=== PATIENT | female | born 1995 | race Caucasian/White ===

== ENCOUNTER 2018-12-21 12:54 | Day surgery (SDC) | payer OTHER ==
[2018-12-21] MEDS ORDERED: LACTATED RINGER'S 1,000 ML IV (14:30)
[2018-12-21] MEDS ORDERED: ROCURONIUM 50 MG INJ (15:35)
[2018-12-21] MEDS ORDERED: GLYCOPYRROLATE 0.4 MG INJ (15:35)
[2018-12-21] MEDS ORDERED: PROPOFOL 20 ML (15:35)
[2018-12-21] MEDS ORDERED: CEFAZOLIN 1 GM INJ (15:35)
[2018-12-21] MEDS ORDERED: DEXAMETHASONE 4 MG/ML 5 ML INJ (15:36)
[2018-12-21] MEDS ORDERED: FENTAnyl 50 MCG/ML VIAL ×2 (15:36→16:07)
[2018-12-21] MEDS ORDERED: MIDAZOLAM 1 MG/ML 2 ML INJ (15:36)
[2018-12-21] MEDS ORDERED: ONDANSETRON 4 MG INJ (15:36)
[2018-12-21] MEDS: LIDOCAINE 1%/EPI (1:100,000) (MDV) 20 ML (15:44)
[2018-12-21] MEDS: OXYMETAZOLINE 0.05% 15 ML NAS SPRAY NASAL (15:44)
[2018-12-21] MEDS ORDERED: LABETALOL HCL 20MG INJ IV (16:00)
[2018-12-21] MEDS ORDERED: MIDAZOLAM 1 MG/ML 2 ML INJ IV (16:00)
[2018-12-21] MEDS ORDERED: ONDANSETRON 4 MG INJ IV (16:00)
[2018-12-21] MEDS ORDERED: TRIMETHOBENZAMIDE 100 MG/ML VIAL IM (16:00)
[2018-12-21] MEDS ORDERED: IPRATROPIUM (NEB) 0.5 MG/2.5 ML AMP HHN (16:00)
[2018-12-21] MEDS ORDERED: FENTAnyl 50 MCG/ML VIAL IV ×3 (16:00)
[2018-12-21] MEDS ORDERED: DIPHENHYDRAMINE 50 MG INJ IV (16:00)
[2018-12-21] MEDS ORDERED: OXYCODONE/ACETAMINOPHEN (5/325) TAB PO (16:00)
[2018-12-21] MEDS ORDERED: MEPERIDINE 25 MG INJ IV (16:00)
[2018-12-21] MEDS ORDERED: HYDROmorphONE 1 MG/5 ML IV SYRINGE IV (16:00)
[2018-12-21] MEDS ORDERED: ALBUTEROL 0.083% (NEB) 2.5 MG/3 ML AMP HHN (16:00)
[2018-12-21] MEDS ORDERED: EPHEDrine SULFATE 50 MG/5 ML SYG IV (16:00)
[2018-12-21] MEDS ORDERED: hydrALAzine 20 MG INJ IV (16:00)
[2018-12-21] MEDS: HYDROmorphONE 1 MG/5 ML IV SYRINGE IV ×4 (16:43→17:20)
[2018-12-21] MEDS: OXYCODONE/ACETAMINOPHEN (5/325) TAB PO (17:24)
== END 2018-12-21 18:30 | disposition home or self-care (01) ==
LOC: SDS 12:54
DX: J34.3 Hypertrophy of nasal turbinates (principal); J34.89 Other specified disorders of nose and nasal sinuses; E03.9 Hypothyroidism, unspecified
CPT/HCPCS: 30140; 84703